=== PATIENT | male | born 1955 | race Hispanic/Latino ===

== ENCOUNTER 2022-03-18 08:13 | Day surgery (SDC) | payer MEDICARE ==
[~2022-03-18] VITALS: Ht 172.7 cm; Wt 74.4 kg
[~2022-03-18 08:13] MED LIST: ALBUTEROL SUL0.083 % IN; CHLORTHALIDONE25 MG PO; DILTIAZEM HCL300 M1 PO; GABAPENTIN100 MG PO; LIPITOR10 M1 PO; LOSARTAN POTASS50 MG PO; SINGULAIR10 MG PO
[2022-03-18] MEDS ORDERED: PROTONIX20 M1 PO (11:26)
[2022-03-18 12:46] VITALS: BP 121/80
== END 2022-03-18 11:55 | disposition home or self-care (01) ==
LOC: ENDO 08:13 → ORM 10:30 → ENDO 10:30 → ORM 11:00 → ENDO 11:00 → ORM 11:30 → ENDO 11:55
PROVIDERS: ATTEND Internal Medicine Gastroenterology
PROC: 0DBL8ZX Excision of Transverse Colon, Via Natural or Artificial Opening Endoscopic, Diagnostic (ICD-10-PCS; principal; 2022-03-18)
PROC: 0D738ZZ Dilation of Lower Esophagus, Via Natural or Artificial Opening Endoscopic (ICD-10-PCS; 2022-03-18)
PROC: 0DB38ZX Excision of Lower Esophagus, Via Natural or Artificial Opening Endoscopic, Diagnostic (ICD-10-PCS; 2022-03-18)
PROC: 0DB78ZX Excision of Stomach, Pylorus, Via Natural or Artificial Opening Endoscopic, Diagnostic (ICD-10-PCS; 2022-03-18)
PROC: 0DB28ZX Excision of Middle Esophagus, Via Natural or Artificial Opening Endoscopic, Diagnostic (ICD-10-PCS; 2022-03-18)
DX: Z12.11 Encounter for screening for malignant neoplasm of colon (principal); D12.3 Benign neoplasm of transverse colon; K57.30 Diverticulosis of large intestine without perforation or abscess without bleeding; K64.8 Other hemorrhoids; K22.2 Esophageal obstruction; K25.9 Gastric ulcer, unspecified as acute or chronic, without hemorrhage or perforation; K29.50 Unspecified chronic gastritis without bleeding; K29.80 Duodenitis without bleeding; K20.90 Esophagitis, unspecified without bleeding; I10 Essential (primary) hypertension; E78.5 Hyperlipidemia, unspecified; G20 Parkinson's disease; G60.9 Hereditary and idiopathic neuropathy, unspecified; Z86.010 Personal history of colon polyps

== ENCOUNTER 2022-06-17 09:46 | Day surgery (SDC) | payer MEDICARE ==
[~2022-06-17] VITALS: Ht 172.7 cm; Wt 75.3 kg
[~2022-06-17 09:46] MED LIST changes: +PROTONIX20 M1 PO
[2022-06-17 11:29] VITALS: BP 122/81
== END 2022-06-17 11:50 | disposition home or self-care (01) ==
LOC: ENDO 09:46 → ORM 12:30
PROVIDERS: ATTEND Internal Medicine Gastroenterology
PROC: 0DB68ZX Excision of Stomach, Via Natural or Artificial Opening Endoscopic, Diagnostic (ICD-10-PCS; principal; 2022-06-17)
DX: K29.50 Unspecified chronic gastritis without bleeding (principal); K57.30 Diverticulosis of large intestine without perforation or abscess without bleeding; K64.8 Other hemorrhoids; I10 Essential (primary) hypertension; G60.9 Hereditary and idiopathic neuropathy, unspecified; E78.5 Hyperlipidemia, unspecified; G20 Parkinson's disease; Z87.11 Personal history of peptic ulcer disease; Z87.19 Personal history of other diseases of the digestive system; Z86.010 Personal history of colon polyps